=== PATIENT | male | born 1990 | race Caucasian/White ===

== ENCOUNTER 2017-12-22 15:20 | Emergency (ER) | payer SELFPAY ==
[2017-12-22 15:30] VITALS: BMI 23.0
[2017-12-22 15:32] VITALS: TEMP 98
[2017-12-22] MEDS ORDERED: Sodium Chloride 0.9% 1,000 ML IV STA (15:37)
--- NOTE | 2017-12-22 15:45 | ED PDOC ---
Arrival/HPI - General Chief Complaint: Substance Abuse Time Seen by Provider: 12/22/17 15:37 Historian: Patient EM Caveat: Intoxicated - History of Present Illness Narrative History of Present Illness (Text): 12/22/17 15:41 27 y/o male, pmh including metcarpal fracture, psychiatric history including chronic depression/drug abuse with heroine and marijuanna, nkda, biba for seeking medical and psychiatric care. Pt. stated that he has been using heroine on and off for the past 5 years after he found out is cheating on him, last time using the heroine about 2 days ago, arrested about 5 days ago due to found using heroine, stated that he has hard time sleeping for the past few days, took total of 4 tablets of sleeping ambien 1mg/tablet, stated that he wants detox, no rash, no head or neck injury, no numbness or tingling, no palpitation, no other medical or psychological complaints. Pt. stated that he is taking sleeping medication because it wasn't working but he has no intention of harming himself as he wants to live and not . Past Medical History - Provider Review Nursing Documentation Reviewed: Yes - Infectious Disease Hx of Infectious Diseases: None - Tetanus Immunization Tetanus Immunization: Up to Date - Past Medical History Past Medical History: No Previous - Musculoskeletal/Rheumatological Hx Back Pain: Yes Hx Herniated Disk: Yes - Psychiatric Hx Anxiety: No Hx Depression: No Hx Schizophrenia: No Hx Substance Use: Yes (heroin, cocaine) - Past Surgical History Past Surgical History: No Previous - Anesthesia Hx Anesthesia: No Hx Anesthesia Reactions: No Hx Malignant Hyperthermia: No - Suicidal Assessment Feels Threatened In Home Enviroment: No Family/Social History - Physician Review Nursing Documentation Reviewed: Yes Family/Social History: Unknown Family HX Smoking Status: Heavy Smoker > 10 Cigarettes Daily Hx Alcohol Use: Yes Frequency of alcohol use: Few days per week Hx Substance Use: Yes (heroin, cocaine) Hx Substance Use Treatment: No Allergies/Home Meds Allergies/Adverse Reactions: Allergies No Known Allergies Allergy (Verified 10/28/17 14:56) Home Medications: Home Meds Medication Instructions Recorded Confirmed No Known Home Med 12/22/17 12/22/17 Review of Systems - Review of Systems Constitutional: absent: Fatigue, Fevers Respiratory: absent: SOB, Cough Cardiovascular: absent: Chest Pain Gastrointestinal: absent: Abdominal Pain, Diarrhea, Nausea, Vomiting Skin: absent: Rash, Pruritis Neurological: absent: Headache, Dizziness Psychiatric: absent: Anxiety, Depression, Suicidal Ideation Physical Exam Vital Signs Reviewed: Yes Vital Signs Temp Pulse Resp BP Pulse Ox 12/22/17 19:34 70 18 99 12/22/17 19:33 70 19 99 12/22/17 17:23 72 20 112/80 100 12/22/17 15:20 98 F 95 H 18 98/58 L 99 Temperature: Afebrile Blood Pressure: Hypotensive Pulse: Regular Respiratory Rate: Normal Appearance: Positive for: Well-Appearing, Non-Toxic, Comfortable Pain Distress: None Mental Status: Positive for: Alert and Oriented X 3 - Systems Exam Head: Present: Atraumatic, Normocephalic. No: Tenderness, Contusion, Swelling, Ecchymosis, Abrasion, Laceration, Other Pupils: Present: Other (+pinpoint pupils noted 4mm noted with no hyphema or subconjunctival hemorrage. ) Extroacular Muscles: Present: EOMI Conjunctiva: Present: Normal Ears: Present: NORMAL TM, Normal Canal. No: Erythema Mouth: Present: Moist Mucous Membranes Pharnyx: No: ERYTHEMA, EXUDATE, TONSILS ENLARGED Nose (External): Present: Atraumatic. No: Abrasion, Contusion, Laceration, Lesions Nose (Internal): Present: Normal Inspection, No Active Bleeding. No: Rhinorrhea , Septal Deviation, Septal Hematoma, Epistaxis Neck: Present: Normal Range of Motion. No: MIDLINE TENDERNESS, Paraspinal Tenderness Respiratory/Chest: Present: Clear to Auscultation, Good Air Exchange. No: Respiratory Distress, Accessory Muscle Use, Wheezes, Retracting, Rhonchi, Tachypneic Cardiovascular: Present: Regular Rate and Rhythm, Normal S1, S2. No: Murmurs Abdomen: No: Tenderness, Distention, Peritoneal Signs, Rebound, Guarding Back: Present: Normal Inspection. No: CVA Tenderness, Midline Tenderness, Paraspinal Tenderness, Pain with Leg Raise Upper Extremity: Present: Normal Inspection. No: Cyanosis, Edema Lower Extremity: Present: Normal Inspection, NORMAL PULSES, Neurovascularly Intact. No: Edema, Tenderness, Swelling Neurological: Present: GCS=15, CN II-XII Intact, Speech Normal, Motor Func Grossly Intact, Norm Deep Tendon Reflexes, Gait Normal, Memory Normal Skin: Present: Warm, Dry, Normal Color. No: Rashes Lymphatic: No: Cervical Adenopathy Psychiatric: Present: Alert, Oriented x 3, Normal Insight, Normal Concentration Medical Decision Making ED Course and Treatment: 12/22/17 15:47 -Labs/ua/uds/ck -ekg -CT head -Chest xray -IVF -Cardiac monitoring/fall and aspiration precaution -Poison control -Observe and reassess 12/22/17 19:11 -EKG: NSR @ 83 BPM, no ST elevation or depression, no T wave inversion, compared with previous ekg. -CT Head: No acute intracranial hemorrhage. -Chest xray: show no acute findings -Labs show show no acute significant findings -CK show no acute findings -UA show no UTI -UDS show +benzo/+opiate/+cocaine -ABG: PH 7.41, CO2 38, HCO3 24.1 -Poison controlled agreed on the labs and treatment plan with no other recommendation -Pt. stated that he has no homicidal or suicidal ideation, no auditory or visual hallucinations. -Pt. is neurologically intact, easily arousable, awake now, stated that he didn' t take any ambien today but he did took 4 tablets of ambien 2 days ago, calling the poison control for updated status. Pt. is awake and alert with aox4, non- intoxicated, medically clear and stable now for psychiatric evaluation -PES paged. -I discussed with Dr. Sotelo about the case/labs and updated story, he agreed that the patient is medically clear and stable, agreed on the PES evaluation as the patient as he has chronic depression but he doesn't feel homocidial/ suicidal ideation, no auditory or visual hallucination 12/22/17 19:28 -Pt. is awake and alert, non-intoxicated, pupils bilaterally 6mm with reactive, labs show no acute findings except drug abuse, refused psychiatric evaluation, stated that he is not homicidal or suicidal ideation, no auditory or visual hallucination, stated that he can make his own decision, wants to sign out against medical advise as he wants to go -Pt. is walking with normal gait and posture, no focal neurological deficits, non-intoxicated, neurologically intact, no tremors with no signs of withdrawal, no auditory or visual hallucination, no homicidal or suicidal ideation. AMA AMA ER The patient refuses to stay in the Emergency Room (ER) to continue the care and wishes to leave the emergency department against my medical advice. Patient was told that staying in the ER is necessary and a full explanation of the reasons why was given, and understood by the patient with alert and oriented x4. The risk of leaving were explained in laymans term and including but not limited to organ failure, systemic inflammatory diseases, overdose, worsening psychiatric presentation, pain, worsening of condition, permanent disability and from an undiagnosed or untreated condition. The patient accepts these risks, and is in my judgment is competent and capable of understanding the clinical situation and explanation of the risk of leaving. The patient is able to verbally repeated me back the above explained risks and benefits back to me, and verbally expressed understanding. Patient was given the opportunity to ask questions and change mind. The patient was instructed regarding the best care for the present symptoms, and to follow up as soon as possible with the primary care doctor including specialist or return to the emergency department at any time for continuing care. -You leave against medical advise. -You are advised to stay in the ER for psychiatric evaluation and further observation but you declined, please follow up with your own pmd and psychiatrist within 24 HOURS or return to the ER as soon as possible. 12/22/17 19:35 -I called and spoke to the poison control Dr. Hernandez, discussed about the updated status case and the story/labs/radiology result/vital sign, stated that the patient poison control has no other recommendation if the patient is alert and orient with no signs of withdrawal along the medication ingestion is 2 days ago. - Critical Care Critical Care Minutes: 30 minutes Critical Care Time: Unstable Narrative Critical Care (Text): 12/22/17 17:33 Overdose, require cardiac monitoring, poison control and ICU consult, IVF, closed observation. - Lab Interpretations Lab Results: 12/22/17 16:36 12/22/17 16:36 Lab Results 12/22/17 18:45: Urine Opiates Screen Positive H, Urine Methadone Screen Negative , Ur Barbiturates Screen Negative, Ur Phencyclidine Scrn Negative, Ur Amphetamines Screen Negative, U Benzodiazepines Scrn Positive H, U Oth Cocaine Metabols Positive H, U Cannabinoids Screen Negative 12/22/17 18:45: Urine Color Yellow, Urine Appearance Clear, Urine pH 6.0, Ur Specific [place] 1.010, Urine Protein Negative, Urine Glucose (UA) Negative, Urine Ketones Negative, Urine Blood Negative, Urine Nitrate Negative, Urine Bilirubin Negative, Urine Urobilinogen 0.2, Ur Leukocyte Esterase Negative 12/22/17 18:40: pCO2 38, pO2 95.0, HCO3 24.1, ABG pH 7.41, ABG Total CO2 25.3, ABG O2 Saturation 98.7 H, ABG Base Excess -0.3, ABG Potassium 3.8, Glucose 84, Lactate 0.5 L, FiO2 21.0, Sodium 140.0, Chloride 111.0 H, Arterial Blood Potassium 3.8 12/22/17 16:36: WBC 4.7, RBC 4.15, Hgb 12.7 L, Hct 37.0 L, MCV 89.2, MCH 30.6, MCHC 34.3, RDW 13.2, Plt Count 267, MPV 10.1, Gran % 43.1 L, Lymph % (Auto) 46.3 H, [place] % (Auto) 8.7 H, Eos % (Auto) 1.5, Baso % (Auto) 0.4, Gran # 2.04, Lymph # (Auto) 2.2, [place] # (Auto) 0.4, Eos # (Auto) 0.1, Baso # (Auto) 0.02 12/22/17 16:36: Alcohol, Quantitative < 10 12/22/17 16:36: Salicylates < 1 L, Acetaminophen < 10.0 L 12/22/17 16:36: Sodium 145, Potassium 4.0, Chloride 106, Carbon Dioxide 28, Anion Gap 16, BUN 14, Creatinine 1.0, Est GFR ( Amer) > 60, Est GFR (Non- Af Amer) > 60, Random Glucose 96, Calcium 9.8, Magnesium 2.3 H, Total Bilirubin 0.4, AST 24, ALT 22, Alkaline Phosphatase 49, Total Creatine Kinase 205, Total Protein 7.0, Albumin 4.3, Globulin 2.7, Albumin/Globulin Ratio 1.6 - RAD Interpretation Radiology Orders: 12/22/17 15:38 HEAD W/O CONTRAST [CT] Stat 12/22/17 15:40 CHEST PORTABLE [RAD] Stat Chest xray: CT head: PROCEDURE: CT HEAD WITHOUT CONTRAST. HISTORY: drowsy, overdose, r/o bleed COMPARISON: No prior study available comparison . TECHNIQUE: Axial computed tomography images were obtained through the head/brain without intravenous contrast. Radiation dose: Total exam DLP = 861.79 mGy-cm. This CT exam was performed using one or more of the following dose reduction techniques: Automated exposure control, adjustment of the mA and/or kV according to patient size, and/or use of iterative reconstruction technique. FINDINGS: HEMORRHAGE: No acute parenchymal, subarachnoid or extra-axial hemorrhage. BRAIN: No mass effect or edema. No atrophy or chronic microvascular ischemic changes. VENTRICLES: Unremarkable. No hydrocephalus. CALVARIUM: Unremarkable. PARANASAL SINUSES: Unremarkable as visualized. No significant inflammatory changes. MASTOID AIR CELLS: Unremarkable as visualized. No inflammatory changes. OTHER FINDINGS: None. IMPRESSION: No acute intracranial hemorrhage. Contracting Officer: Radiologist - EKG Interpretation EKG Interpretation (Text): 12/22/17 15:48 -EKG: NSR @ 83 BPM, no ST elevation or depression, no T wave inversion, compared with previous ekg. Interpreted by ED Physician: Yes Type: 12 lead EKG Comparison: Com.w/previous EKG - Medication Orders Current Medication Orders: Discontinued Medications Sodium Chloride (Sodium Chloride 0.9%) 1,000 mls @ 999 mls/hr IV .Q1H1M STA Stop: 12/22/17 16:37 Last Admin: 12/22/17 17:35 Dose: 999 mls/hr eMAR Start Stop Document 12/22/17 17:35 [email or web address] (Rec: 12/22/17 17:35 [email or web address] [id number]) Intravenous Solution Start Date 12/22/17 Start Time 17:35 End Date 12/22/17 Nicotine (Nicoderm Cq) 1 patch TD STAT STA Stop: 12/22/17 18:35 Last Admin: 12/22/17 18:51 Dose: 1 patch MAR Transdermal Patch Site Document 12/22/17 18:51 [email or web address] (Rec: 12/22/17 18:51 [email or web address] [id number]) Transdermal Patch Site Transdermal Patch Site Left Shoulder - PA / [employer] SUPERVISOR / Resident Statement MD/DO has reviewed & agrees with the documentation as recorded. Disposition/Present on Arrival - Present on Arrival Any Indicators Present on Arrival: No History of DVT/PE: No History of Uncontrolled Diabetes: No Urinary Catheter: No History of Decub. Ulcer: No History Surgical Site Infection Following: None - Disposition Have Diagnosis and Disposition been Completed?: Yes Diagnosis: Non-compliant patient, Insomnia Disposition: AGAINST MEDICAL ADVICE Disposition Time: 17:33 Condition: GOOD Additional Instructions: -You are advised to stay in the ER for psychiatric evaluation and further observation but you declined, please follow up with your own pmd and psychiatrist within 24 HOURS or return to the ER as soon as possible. Referrals: Melba Neal, [Primary Care Provider] - Follow up with primary [facility] [place] - Follow up with primary Juan Gabriel MD [Staff Provider] - Follow up with primary Forms: WORK NOTE
[2017-12-22 16:55] LABS: BASO # 0.02 K/mm3 (0.0-2.0); BASO % 0.4 % (0.0-3.0); EOS # 0.1 (0.0-0.7); EOS % 1.5 % (1.5-5.0); GRAN # 2.04 (1.4-6.5); GRAN % 43.1 % (50.0-68.0); HEMOGLOBIN 12.7 g/dL (14.0-18.0); LYMPH # 2.2 (1.2-3.4); LYMPH % 46.3 % (22.0-35.0); MEAN CELL VOLUME 89.2 fl (80.0-105.0); MEAN CORPUSCULAR HEMOGLOBIN 30.6 pg (25.0-35.0); MEAN CORPUSCULAR HGB CONC 34.3 g/dl (31.0-37.0); MEAN PLATELET VOLUME 10.1 fl (7.0-11.0); MONO # 0.4 (0.1-0.6); MONO % 8.7 % (1.0-6.0); RBC 4.15 10^6/uL (3.5-6.1); RED CELL DISTRIBUTION WIDTH 13.2 % (11.5-14.5); WHITE BLOOD COUNT 4.7 10^3/ul (4.5-11.0)
[2017-12-22 17:00] LABS: ALB/GLOB RATIO 1.6 (1.1-1.8); ALBUMIN 4.3 g/dL (3.0-4.8); ALT/SGPT 22 U/L (7-56); AST/SGOT 24 U/L (17-59); BLOOD UREA NITROGEN 14 mg/dL (7-21); CALCIUM 9.8 mg/dL (8.4-10.5); GFR AFRICAN-AMERICAN > 60; GFR NON-AFRICAN AMERICAN > 60
[2017-12-22 17:07] LABS: ACETAMINOPHEN < 10.0 ug/ml (10.0-20.0); SALICYLATE < 1 mg/dL (2.0-20.0)
[2017-12-22 17:23] VITALS: BP 112/80
--- NOTE | 2017-12-22 17:24 | CT ---
PROCEDURE: CT HEAD WITHOUT CONTRAST. HISTORY: drowsy, overdose, r/o bleed COMPARISON: No prior study available comparison . TECHNIQUE: Axial computed tomography images were obtained through the head/brain without intravenous contrast. Radiation dose: Total exam DLP = 861.79 mGy-cm. This CT exam was performed using one or more of the following dose reduction techniques: Automated exposure control, adjustment of the mA and/or kV according to patient size, and/or use of iterative reconstruction technique. FINDINGS: HEMORRHAGE: No acute parenchymal, subarachnoid or extra-axial hemorrhage. BRAIN: No mass effect or edema. No atrophy or chronic microvascular ischemic changes. VENTRICLES: Unremarkable. No hydrocephalus. CALVARIUM: Unremarkable. PARANASAL SINUSES: Unremarkable as visualized. No significant inflammatory changes. MASTOID AIR CELLS: Unremarkable as visualized. No inflammatory changes. OTHER FINDINGS: None. IMPRESSION: No acute intracranial hemorrhage.
[2017-12-22 18:49] LABS: ARTERIAL BLOOD GAS HCO3 24.1 mmol/L (21-28); ARTERIAL BLOOD GAS O2 SAT 98.7 % (95-98); ARTERIAL BLOOD GAS PCO2 38 mm/Hg (35-45); ARTERIAL BLOOD GAS PH 7.41 (7.35-7.45); ARTERIAL BLOOD GAS TCO2 25.3 mmol.L (22-28)
[2017-12-22 18:59] LABS: URINE BILIRUBIN NEGATIVE (NEGATIVE); URINE BLOOD NEGATIVE (NEGATIVE); URINE GLUCOSE (UA) NEGATIVE (NEGATIVE); URINE LEUKOCYTE ESTERASE NEGATIVE Leu/uL (NEGATIVE); URINE PROTEIN NEGATIVE mg/dL (<30 mg/dL); URINE UROBILINOGEN 0.2 E.U./dL (<1 E.U./dL)
[2017-12-22 19:01] LABS: URINE APPEARANCE CLEAR (CLEAR); URINE COLOR YELLOW (YELLOW)
[2017-12-22 19:15] LABS: BARBITURATES, UR NEGATIVE (NEGATIVE); BENZODIAZEPINES, UR POSITIVE (NEGATIVE); OPIATES, UR POSITIVE (NEGATIVE); PHENCYCLIDINE, UR NEGATIVE (NEGATIVE)
[2017-12-22 19:34] VITALS: PULSE 70; O2SAT 99
[2017-12-22 19:35] VITALS: RESP 18
--- NOTE | 2017-12-22 21:03 | PN ---
DATE: 12/22/2017 COMMUNICATION NOTE The ICU consult initially was called, but then canceled before I completed the evaluation. The patient is alert, awake, oriented x3. Very mildly sleepy but maintains very thoughtful conversation. The patient is hemodynamically stable. Blood pressure 112/80, heart rate 72, temperature 98, respiratory rate 20, oxygen saturation 100% on room air. Blood gas and U-tox screen were not ordered by the time I started to see the patient in emergency room. Nevertheless, the patient is clearly able to protect airways. When asked why did he come to [place] [facility], he responded that he was told that [facility] has "D-tox program." He denies taking any medication within the last 2 days and the reason for his sleepiness is that he did not sleep for 3-4 days. Nevertheless, he completely denies that he took any medication over the last 2 days. As I mentioned before, ICU consult was canceled. I mentioned to ER physician that if clinical situation change or any further question or concern arise, please call ICU for reevaluation. Ricky Martin MD
--- NOTE | 2017-12-23 08:51 | RAD ---
HISTORY: medical clearance COMPARISON: 10/10/2015 FINDINGS: LUNGS: No active pulmonary disease. PLEURA: No significant pleural effusion identified, no pneumothorax apparent. CARDIOVASCULAR: Normal. OSSEOUS STRUCTURES: No significant abnormalities. VISUALIZED UPPER ABDOMEN: Normal. OTHER FINDINGS: None. IMPRESSION: No active disease.
--- NOTE | 2017-12-23 09:50 | CARD ---
APPROVED REPORT EKG Measurement Heart [id number] <Conclusion> Normal sinus rhythm Normal ECG
== END 2017-12-22 19:35 | disposition left against medical advice (07) ==
LOC: ED 15:20
DX: G47.00 Insomnia, unspecified (principal); Z91.19 Patient's noncompliance with other medical treatment and regimen; F17.210 Nicotine dependence, cigarettes, uncomplicated
CPT/HCPCS: 70450; 71045; 80053; 81003; 82550; 82803; 83735; 85025; 93005; 99284; G0480; J7030

== ENCOUNTER 2018-11-22 12:44 | Outpatient (CLI) | payer MEDICAID | END 2018-11-22 12:45 | disposition home or self-care (01) | LOC: RAD 12:44 ==